=== PATIENT | female | born 2000 | race Caucasian/White ===

== ENCOUNTER 2019-07-02 22:35 | Emergency (ER) | payer MEDICAID ==
[~2019-07-02] VITALS: Ht 157.5 cm; Wt 64.5 kg
--- NOTE | 2019-07-02 22:53 | NUR ---
LOWER ABDOMINAL PAIN X 3 WEEKS THAT WRAPS AROUND TO HER FLANK AREA BILATERALLY. NAUSEA X 2 WEEKS. PT DENIES URINARY SYMTOMS, VOMITTING OR DIARRHEA.
--- NOTE | 2019-07-02 23:02 | NUR ---
PT AMBULATORY TO BATHROOM WITH A STEADY GAIT
[2019-07-02 23:20] LABS: HCG UR SG 1.033 (1.003-1.030)
[2019-07-02 23:21] LABS: CULTURE INDICATED? YES; MICROSCOPIC INDICATED
[2019-07-02 23:28] LABS: BASOPHILS # (AUTO) 0.07 x10^3/uL (0-0.3); BASOPHILS % (AUTO) 1 % (0-1); EOSINOPHILS # (AUTO) 0.01 x10^3/uL (0-0.8); EOSINOPHILS % (AUTO) 0 % (1-7); LYMPHOCYTES # (AUTO) 1.36 x10^3/uL (1-6.1); LYMPHOCYTES % (AUTO) 13 % (22-44); MD NO; MEAN CORPUSCULAR HEMOGLOBIN 24.6 pg (27.0-34.8); MEAN CORPUSCULAR HGB CONC 32.2 g/dL (32.4-35.8); MEAN CORPUSCULAR VOLUME 76.3 fL (80-100); MEAN PLATELET VOLUME 7.2 fL (7.4-10.4); MONOCYTES # (AUTO) 0.48 x10^3/uL (0-1.4); MONOCYTES % (AUTO) 5 % (2-9); NEUTROPHILS # (AUTO) 8.73 x10^3/uL (1.8-8.0); NEUTROPHILS % (AUTO) 82 % (42-75); PLATELET COUNT 377 x10^3/uL (130-400); RED BLOOD COUNT 4.49 x10^6/uL (3.82-5.3); RED CELL DISTRIBUTION WIDTH 17.8 % (9.6-15.2)
[2019-07-02 23:33] LABS: ALANINE AMINOTRANSFERASE 12 U/L (12-78); ALBUMIN 3.1 g/dL (3.4-5.0); ANION GAP 10 mmol/L (5-15); CALCIUM 8.5 mg/dL (8.5-10.1); CHLORIDE 109 mmol/L (98-107); CREATININE 0.53 mg/dL (0.55-1.02)
[2019-07-02 23:35] LABS: ALKALINE PHOSPHATASE 85 U/L (45-117); BILIRUBIN,TOTAL 0.2 mg/dL (0.2-1.0); TOTAL PROTEIN 7.9 g/dL (6.4-8.2)
--- NOTE | 2019-07-02 23:56 | NUR ---
PT WAS FOUND TO BE UPON ABD ULTRASOUND. STATES APPEARS OVER 20WKS. L&D WAS CALLED AND INFORMED PER POLICY. RUBI FROM L&D STATES OKAY TO KEEP PT IN ED FOR NOW WE ARE STILL RUNNING TESTS. RUBI STATES TO CALL DR MONTANO ON HIS CELL AND CONSULT HIM TO WHETHER PT NEEDS TO GO TO L&D OR REMAIN IN ED FOR ADDITION TESTS/ORDERS. INFORMED.
--- NOTE | 2019-07-02 23:57 | NUR ---
PT BACK FROM US
[2019-07-03 01:00] VITALS: BP 102/67
== END 2019-07-03 01:05 | disposition home or self-care (01) ==
LOC: ED 07-03 00:13
DX: O00.01 Abdominal pregnancy with intrauterine pregnancy (principal); K80.20 Calculus of gallbladder without cholecystitis without obstruction; Z3A.22 22 weeks gestation of pregnancy; Z87.891 Personal history of nicotine dependence
CPT/HCPCS: 36415; 76700; 76815; 80053; 81001; 81025; 83690; 84702; 85025; 87086; 99284

== ENCOUNTER 2020-10-20 23:47 | Emergency (ER) | payer MEDICAID ==
[~2020-10-20] VITALS: Ht 162.6 cm; Wt 66.2 kg
--- NOTE | 2020-10-21 00:33 | NUR ---
pt to room from lobby
--- NOTE | 2020-10-21 00:51 | NUR ---
ASSUMED CARE OF PATIENT. PATIENT REPORTS GENERALIZED ABD PAIN. VS STABLE. NO ACUTE DISTRESS NOTED. PT HAS BEEN SEEN BY KATY BLACKMAN. CALL LIGHT IN PLACE. WILL CONTINUE TO MONITOR.
[2020-10-21 00:56] LABS: BASOPHILS % (AUTO) 1 % (0-1); EOSINOPHILS % (AUTO) 2 % (1-7); LYMPHOCYTES % (AUTO) 37 % (22-44); MEAN CORPUSCULAR HEMOGLOBIN 28.1 pg (27.0-34.8); MEAN CORPUSCULAR HGB CONC 33.9 g/dL (32.4-35.8); MONOCYTES % (AUTO) 8 % (2-9); NEUTROPHILS % (AUTO) 52 % (42-75); PLATELET COUNT 301 x10^3/uL (130-400); RED CELL DISTRIBUTION WIDTH 14.4 % (9.6-15.2)
[2020-10-21 00:57] LABS: MD NO
[2020-10-21] MEDS ORDERED: DICYCLOMINE 20 MG TABLET PO ONE (01:00)
[2020-10-21] MEDS ORDERED: DICYCLOMINE 20 MG TABLET ONE (01:02)
[2020-10-21 01:03] LABS: ALANINE AMINOTRANSFERASE 30 U/L (12-78); ALBUMIN 3.9 g/dL (3.4-5.0); ANION GAP 5 mmol/L (5-15); CALCIUM 8.5 mg/dL (8.5-10.1); CHLORIDE 111 mmol/L (98-107); CREATININE 0.76 mg/dL (0.55-1.02)
[2020-10-21 01:08] LABS: ALKALINE PHOSPHATASE 96 U/L (45-117); BILIRUBIN,TOTAL 0.2 mg/dL (0.2-1.0); TOTAL PROTEIN 7.7 g/dL (6.4-8.2)
[2020-10-21 01:10] LABS: MICROSCOPIC INDICATED
--- NOTE | 2020-10-21 02:04 | NUR ---
REPORT RECEIVED FROM ELIAS MUNOZ. ASSUMED CARE OF PT
--- NOTE | 2020-10-21 02:04 | NUR ---
REPORT GIVEN TO ELIAS BRICEÑO
[2020-10-21] MEDS ORDERED: MAALOX/HYOSCYAMINE/LIDOCAINE 45 ML BTL ONE (02:42)
--- NOTE | 2020-10-21 02:47 | NUR ---
PT MEDICATED PER EMAR. 5 RIGHTS ADDRESSED.
[2020-10-21] MEDS ORDERED: MAALOX/HYOSCYAMINE/LIDOCAINE 45 ML BTL PO ONE (03:00)
--- NOTE | 2020-10-21 03:47 | NUR ---
Patient/Caregiver given discharge instructions and they have confirmed that they understand the instructions. Patient ambulatory with steady gait.
[2020-10-21 03:48] VITALS: BP 112/68
== END 2020-10-21 03:50 | disposition home or self-care (01) ==
LOC: ED 10-21 01:09
DX: R10.84 Generalized abdominal pain (principal); R10.13 Epigastric pain; Z87.891 Personal history of nicotine dependence
CPT/HCPCS: 36415; 80053; 81001; 83690; 84703; 85025; 99283

== ENCOUNTER 2021-08-13 18:57 | Observation (INO) | payer MEDICAID ==
[~2021-08-13] VITALS: Ht 160 cm; Wt 66.8 kg
[2021-08-13 20:19] LABS: BASOPHILS % (AUTO) 1 % (0-1); EOSINOPHILS % (AUTO) 1 % (1-7); LYMPHOCYTES % (AUTO) 24 % (22-44); MEAN CORPUSCULAR HEMOGLOBIN 28.3 pg (27.0-34.8); MEAN CORPUSCULAR HGB CONC 33.8 g/dL (32.4-35.8); MEAN PLATELET VOLUME 7.2 fL (7.4-10.4); MONOCYTES % (AUTO) 8 % (2-9); NEUTROPHILS % (AUTO) 67 % (42-75); PLATELET COUNT 323 x10^3/uL (130-400); RED BLOOD COUNT 4.45 x10^6/uL (3.82-5.3); RED CELL DISTRIBUTION WIDTH 13.5 % (9.6-15.2)
[2021-08-13 20:27] LABS: ALANINE AMINOTRANSFERASE 14 U/L (12-78); ALBUMIN 3.2 g/dL (3.4-5.0); ANION GAP 4 mmol/L (5-15); CALCIUM 8.1 mg/dL (8.5-10.1); CHLORIDE 110 mmol/L (98-107); CREATININE 0.75 mg/dL (0.55-1.02)
[2021-08-13 20:31] LABS: ALKALINE PHOSPHATASE 76 U/L (45-117); BILIRUBIN,TOTAL 0.3 mg/dL (0.2-1.0)
[2021-08-13 23:44] LABS: MICROSCOPIC AUTO
[2021-08-14] VITALS (8 sets, daily range): BP systolic 83–107; BP diastolic 52–72
[2021-08-14] MEDS ORDERED: SODIUM CHLORIDE FLUSH 10ML SYR IVF ONE
[2021-08-14] MEDS ORDERED: MORPHINE SULFATE 4 MG/ML, 1ML IVPush PRN ×2
[2021-08-14] MEDS ORDERED: SODIUM CHLORIDE 0.9% 1,000 ML IV ONE
[2021-08-14] MEDS ORDERED: HYDROcodone/APAP 5/325 TABLET PO ONE
[2021-08-14] MEDS ORDERED: DEXTROSE 10% 1,000 ML IV SCH
[2021-08-14] MEDS ORDERED: ACETAMINOPHEN 325 MG TABLET PO PRN (00:30)
[2021-08-14] MEDS ORDERED: ONDANSETRON 2MG/ML, 2ML ONE (01:02)
[2021-08-14] MEDS ORDERED: MORPHINE SULFATE 4 MG/ML, 1ML ONE (01:03)
[2021-08-14] MEDS: D5%-0.45NACL+KCL 20MEQ 1,000 ML IV SCH ×2 (02:39→17:38)
[2021-08-14] MEDS ORDERED: OXYcodone IR 5MG TABLET ONE (09:27)
[2021-08-14] MEDS ORDERED: ONDANSETRON 2MG/ML, 2ML IVPush PRN ×3 (09:30→16:00)
[2021-08-14] MEDS ORDERED: OXYcodone 5 MG/5 ML ORAL.SOL UDC PO PRN ×2 (09:30→16:00)
[2021-08-14] MEDS ORDERED: OXYcodone IR 5MG TABLET PO PRN (09:30)
[2021-08-14] MEDS ORDERED: SODIUM CHLORIDE 0.9%, 500ML IVBOLUS ONE (10:30)
[2021-08-14] MEDS ORDERED: INDOCYANINE GREEN 25 MG VIAL IVPush ONE ×2 (13:30)
[2021-08-14] MEDS ORDERED: CHLORHEXIDINE 15 ML UDC ONE (14:00)
[2021-08-14] MEDS ORDERED: EPINEPHRINE 1 MG/ML, 1ML ONE (14:13)
[2021-08-14] MEDS ORDERED: BUPIVACAINE/PF 0.5% ONE (14:13)
[2021-08-14] MEDS ORDERED: MIDAZOLAM 1 MG/ML, 2ML ONE (14:39)
[2021-08-14] MEDS ORDERED: FENTANYL PF 250 MCG/5ML ONE (14:40)
[2021-08-14] MEDS ORDERED: OXYC5CAP2 PO (15:44)
[2021-08-14] MEDS ORDERED: FENTANYL PF 100 MCG/2ML ONE (15:55)
[2021-08-14] MEDS ORDERED: MEPERIDINE/PF 25MG/ML,1ML ONE (15:55)
[2021-08-14] MEDS ORDERED: METOCLOPRAMIDE 5 MG/ML, 2ML IV PRN (16:00)
[2021-08-14] MEDS ORDERED: DIAZEPAM 5 MG/ML, 2ML ONE (16:00)
[2021-08-14] MEDS ORDERED: DIAZEPAM 5 MG/ML, 2ML IV PRN (16:00)
[2021-08-14] MEDS ORDERED: KETOROLAC 30 MG/1 ML IV PRN (16:00)
[2021-08-14] MEDS ORDERED: hydrALAzine 20 MG/ML, 1ML IV PRN (16:00)
[2021-08-14] MEDS ORDERED: LABETALOL 5MG/ML, 20ML IV PRN (16:00)
[2021-08-14] MEDS ORDERED: ALBUTEROL SULFATE 2.5 MG/3 ML NPPB PRN (16:00)
[2021-08-14] MEDS ORDERED: PROMETHAZINE 25 MG/ML, 1ML IV PRN (16:00)
[2021-08-14] MEDS ORDERED: MEPERIDINE/PF 25MG/0.5ML IVPush PRN (16:00)
[2021-08-14] MEDS: FENTANYL PF 100 MCG/2ML IV PRN ×2 (16:00→16:28)
[2021-08-14] MEDS: DIAZEPAM 5 MG/ML, 2ML IV PRN ×2 (16:16→16:40)
[2021-08-14] MEDS ORDERED: HYDROmorphone 2 MG/ML, 1ML ONE (16:30)
[2021-08-14] MEDS ORDERED: OXYcodone 5 MG/5 ML ORAL.SOL UDC ONE (16:31)
[2021-08-14] MEDS: HYDROmorphone 1 MG/ML, 1ML INJ IV PRN ×2 (16:36→16:54)
[2021-08-14] MEDS ORDERED: PROMETHAZINE 25MG TABLET ONE (20:44)
[2021-08-14] MEDS ORDERED: PROMETHAZINE 25MG TABLET PO PRN (21:00)
[2021-08-14] MEDS ORDERED: HYDROmorphone 2 MG/ML, 1ML IVPush PRN (21:00)
[2021-08-15 00:24] VITALS: BP 112/77
[2021-08-15] MEDS: D5%-0.45NACL+KCL 20MEQ 1,000 ML IV SCH (03:25)
[2021-08-15 04:37] VITALS: BP 110/66
[2021-08-15 07:17] VITALS: BP 106/69
== END 2021-08-15 08:40 | disposition home or self-care (01) ==
LOC: ED 08-14 00:10 → INTOOBSV 08-14 00:13 → EDIP 08-14 00:13 → 4NE 08-14 01:22
PROVIDERS: ADMIT Surgery; ATTEND Surgery
DX: K80.00 Calculus of gallbladder with acute cholecystitis without obstruction (principal); Z20.822 Contact with and (suspected) exposure to COVID-19; F17.210 Nicotine dependence, cigarettes, uncomplicated; F12.10 Cannabis abuse, uncomplicated; Z79.899 Other long term (current) drug therapy; Z87.19 Personal history of other diseases of the digestive system
CPT/HCPCS: 36415; 47562; 76700; 80053; 81001; 83690; 84703; 85025; 87086; 87635; 88304; 96361; 96374; 96375; 96376; 99284; C1729; G0378; J0171; J1170; J2175; J2250; J2270; J2405; J3010; J3360; J3480; J7030; J7040; Q0169; S0020